=== PATIENT | female | born 1980 | race Caucasian/White ===

== ENCOUNTER 2022-07-10 07:05 | Day surgery (SDC) | payer OTHER ==
[~2022-07-10 07:05] MED LIST: Lactated Ringers 1,000 ML IV SCH; Sodium Chloride 0.9% 10 ML Syringe FLUSH PRN; Sodium Chloride 0.9% 2.5 ML Syringe FLUSH PRN; Sodium Chloride 0.9% 20 ML SDV IV PRN
[2022-07-10] MEDS ORDERED: Propofol 200 MG/20 ML SDV ONE (07:26)
[2022-07-10] MEDS ORDERED: fentaNYL 100 MCG/2 ML SDV ONE (07:26)
[2022-07-10] MEDS ORDERED: Lidocaine 2% 5 ML SDV ONE (07:30)
== END 2022-07-10 10:00 | disposition home or self-care (01) ==
LOC: MW.SDS 07:05
PROVIDERS: ATTEND Surgery
DX: Z12.11 Encounter for screening for malignant neoplasm of colon (principal); D12.3 Benign neoplasm of transverse colon; F43.10 Post-traumatic stress disorder, unspecified; Z80.0 Family history of malignant neoplasm of digestive organs; Z88.0 Allergy status to penicillin; Z91.012 Allergy to eggs; Z91.040 Latex allergy status; Z91.018 Allergy to other foods; Z79.899 Other long term (current) drug therapy
CPT/HCPCS: 45380; 81025; J2704; J3010; J7120; 00812; J3490